=== PATIENT | female | born 1965 | race Caucasian/White ===

== ENCOUNTER 2016-07-20 18:49 | Inpatient (IN) | payer OTHER ==
[~2016-07-20] VITALS: Ht 157.5 cm; Wt 79.5 kg
[2016-07-20] MEDS ORDERED: morphine 4 MG/ML VIAL IV STA ×2 (19:59→21:55)
[2016-07-20] MEDS ORDERED: FAMOTIDINE 20 MG INJ IV STA (19:59)
[2016-07-20] MEDS ORDERED: SOD CHLORIDE 0.9% 1,000 ML IV STA (19:59)
[2016-07-20] MEDS ORDERED: ONDANSETRON 4 MG INJ IV STA ×2 (19:59→21:55)
[2016-07-20 20:42] LABS: ADD SCAN DIFF NO
[2016-07-20 20:45] LABS: BASOPHIL # 0.1 10^3/ul (0.0-0.1); BASOPHILS % 0.3 % (0.0-2.0); EOSINOPHILS % 0.1 % (0.0-7.0); HEMATOCRIT 44.5 % (37.0-47.0); LYMPHOCYTES # 1.3 10^3/ul (0.8-2.9); LYMPHOCYTES % 6.5 % (15.0-51.0); MEAN CORPUSCULAR HEMOGLOBIN 31.1 pg (29.0-33.0); MEAN CORPUSCULAR HGB CONC 33.7 g/dl (32.0-37.0); MEAN CORPUSCULAR VOLUME 92.3 fl (82.0-101.0); MEAN PLATELET VOLUME 11.4 fl (7.4-10.4); MONOCYTE # 0.6 10^3/ul (0.3-0.9); MONOCYTES % 2.8 % (0.0-11.0); NEUTROPHIL # 17.4 10^3/ul (1.6-7.5); NEUTROPHILS % 89.7 % (39.0-77.0); PLATELET COUNT 284 10^3/UL (140-415); RED BLOOD COUNT 4.82 10^6/ul (4.20-5.40); RED CELL DISTRIBUTION WIDTH 12.3 % (11.5-14.5); WHITE BLOOD COUNT 19.3 10^3/ul (4.8-10.8)
[2016-07-20 20:50] LABS: UR BILIRUBIN (Dip) NEGATIVE (NEGATIVE); UR BLOOD (Dip) NEGATIVE (NEGATIVE); UR CLARITY CLEAR (CLEAR); UR COLOR YELLOW (YELLOW); UR GLUCOSE (Dip) NEGATIVE (NEGATIVE); UR KETONES (Dip) 15 (NEGATIVE); UR LEUKOCYTE ESTERASE (Dip) NEGATIVE (NEGATIVE); UR NITRITE (Dip) NEGATIVE (NEGATIVE); UR UROBILINOGEN (Dip) 0.2 E.U./dL (0.1-1.0)
[2016-07-20 20:51] LABS: ADD UMIC NO; UR TOTAL PROTEIN (Dip) NEGATIVE (NEGATIVE)
[2016-07-20 21:11] LABS: ALBUMIN 5.4 g/dl (3.3-4.9); ALBUMIN/GLOBULIN RATIO 1.54; BILIRUBIN,INDIRECT 0.4 mg/dl (0-1.1); BILIRUBIN,TOTAL 0.4 mg/dl (0.2-1.3); CALCIUM 10.3 mg/dl (8.4-10.2); CREATININE 0.82 mg/dl (0.44-1.00); POTASSIUM 3.8 mmol/L (3.5-5.1); TOTAL PROTEIN 8.9 g/dl (6.1-8.1)
--- NOTE | 2016-07-20 21:12 | RADRPT ---
PROCEDURE: Right upper quadrant abdominal ultrasound. CLINICAL INDICATION: Abdominal pain TECHNIQUE: Sears scale and color doppler ultrasound images of the right upper quadrant. COMPARISON: None FINDINGS: Pancreas: Visualized portions appear of normal echogenicity, no focal lesions. Liver: Morphology: Normal in size and contour. Echogenicity: Increased echogenicity of the liver parenchyma suggestive of hepatic steatosis. Focal lesions: None. Main portal vein: Patent with hepatopetal flow. Biliary System: Normal appearing gallbladder wall. No gallstones seen. No intrahepatic biliary dilatation. Common bile duct measures 4.1 mm in maximal dimension. Kidneys: Right 9.8 cm in length. Right renal cortical thickness is preserved. Normal echogenicity. No hydronephrosis. No renal calculi. No focal lesions. No free fluid identified. IMPRESSION: Normal gallbladder without gallstones. Increased echogenicity of the liver parenchyma suggestive of hepatic steatosis. RPTAT: AADD .Abhi Bee MD, MD Date Time Electronically viewed and signed by .Abhi Bee MD, on 07/20/2016 21:12 .B/
--- NOTE | 2016-07-20 21:39 | RADRPT ---
PROCEDURE: CT abdomen and pelvis without contrast. CLINICAL INDICATION: Abdominal Pain TECHNIQUE: CT scan of the abdomen and pelvis without contrast was performed and is reconstructed a t 2.5 mm contiguous axial intervals from the dome of the diaphragm to the inferior pubic rami.. The patient was scanned without intravenous contrast. Sagittal and coronal reformatted images were obt ained from the axial source images. The calculated radiation dose measures 904 mGy centimeters. The CTDI measures over 17 mGy. COMPARISON: A FINDINGS: The lung bases are clear of any infiltrate or nodule. No effusion is seen. The liver is of normal size, contour and attenuation with no mass or ductal dilatation. No gallston es are visualized. No splenic, adrenal or pancreatic abnormalities present. Kidneys are of normal size and contour. No hydronephrosis, calculus or masses seen. Ureters are o f normal course and caliber with no stone. No bladder mass or stone is present. Uterus and ovaries are normal. There is no aneurysm. No adenopathy is present. No bowel mass is seen. Noted is a moderate length loop of distended small bowel in the left abdom en. Transition is not confidently visualized.. No associated masses seen. The remainder of the sm all bowel and colon are of normal course and caliber. Findings may represent evidence of chronic pa rtial or early acute small bowel obstruction.. The appendix is normal. No phlegmon, ascites or pne umoperitoneum is visualized. The osseous structures are intact. IMPRESSION: Single dilated loops small bowel left abdomen. Transition not clearly seen. Question chronic parti al or early acute small bowel obstruction versus focal ileus. Consider small-bowel follow-through f or more definitive diagnosis. .Nick Pat MD, MD Date Time Electronically viewed and signed by .Nick Pat MD, on 07/20/2016 21:39 .A/
--- NOTE | 2016-07-20 21:39 | ERD ---
ER Documentation Chief Complaint Date/Time DATE: 07/20/16 TIME: 21:37 Chief Complaint AP and Vomiting. AIDS positive HPI This is a 51-year-old female with past history of AIDS that presents to the ER with mid epigastric pain that started earlier today. Patient describes pain as a burning sensation and she states that pain is severe. Pain is nonradiating. Patient states that she has had nausea and vomiting. Vomiting is nonbilious nonbloody. She denies any diarrhea. Patient denies any chest pain or shortness of breath. Patient got diagnosed with AIDS 10-12 years ago. She denies any cough or cold symptoms. She does not have any rashes. ROS 12 point review of systems was done, all negative except per HPI. Allergies Allergies: Coded Allergies: No Known Allergy (Unverified , 07/20/16) Physical Exam Vitals Vital Signs Date Time Temp Pulse Resp B/P Pulse Ox O2 Delivery O2 Flow Rate FiO2 07/20/16 23:01 98.6 68 18 122/57 97 Room Air 07/20/16 18:58 98.1 75 20 136/90 98 Physical Exam GENERAL: The patient is well developed and appropriate for usual state of health , in no apparent distress. HEENT: Atraumatic. CHEST: Clear to auscultation bilaterally. There are no rales, wheezes or rhonchi. HEART: Regular rate and rhythm. No murmurs, clicks, rubs or gallops. ABDOMEN: Soft, nontender and nondistended. Good bowel sounds. No rebound or guarding. No gross peritonitis. No gross organomegaly or masses. No Garg sign or McBurney point tenderness. BACK: No midline or flank tenderness. NEURO: Alert and oriented. SKIN: There is no apparent rash or petechia. The skin is warm and dry. Result Diagram: 07/20/16200907/20/162009 Results 24 hrs Laboratory Tests Test 07/20/16 20:10 07/20/16 20:15 White Blood Count 19.310^3/ul Red Blood Count 4.8210^6/ul Hemoglobin 15.0g/dl Hematocrit 44.5% Mean Corpuscular Volume 92.3fl Mean Corpuscular Hemoglobin 31.1pg Mean Corpuscular Hemoglobin Concent 33.7g/dl Red Cell Distribution Width 12.3% Platelet Count 05770^3/UL Mean Platelet Volume 11.4fl Neutrophils % 89.7% Lymphocytes % 6.5% Monocytes % 2.8% Eosinophils % 0.1% Basophils % 0.3% Nucleated Red Blood Cells % 0.0/100WBC Neutrophils # 17.410^3/ul Lymphocytes # 1.310^3/ul Monocytes # 0.610^3/ul Eosinophils # 0.010^3/ul Basophils # 0.110^3/ul Nucleated Red Blood Cells # 0.010^3/ul Sodium Level 144mmol/L Potassium Level 3.8mmol/L Chloride Level 101mmol/L Carbon Dioxide Level 30mmol/L Anion Gap 17 Blood Urea Nitrogen 16mg/dl Creatinine 0.82mg/dl Glucose Level 141mg/dl Calcium Level 10.3mg/dl Total Bilirubin 0.4mg/dl Direct Bilirubin 0.00mg/dl Indirect Bilirubin 0.4mg/dl Aspartate Amino Transf (AST/SGOT) 32IU/L Alanine Aminotransferase (ALT/SGPT) 47IU/L Alkaline Phosphatase 134IU/L Total Protein 8.9g/dl Albumin 5.4g/dl Globulin 3.50g/dl Albumin/Globulin Ratio 1.54 Lipase 48U/L Urine Color YELLOW Urine Clarity CLEAR Urine pH 6.0 Urine Specific [place] 1.025 Urine Ketones 15 Urine Nitrite NEGATIVE Urine Bilirubin NEGATIVE Urine Urobilinogen 0.2 E.U./dL Urine Leukocyte Esterase NEGATIVE Urine Hemoglobin NEGATIVE Urine Glucose NEGATIVE% Urine Total Protein NEGATIVE Current Medications Medications (Trade) Dose Ordered Sig/Valerie Route PRN Reason Start Time Stop Time Status Last Admin Dose Admin Sodium Chloride (NS) 1,000 ml @ 1,000 mls/hr Q1H STAT IV 07/20/16 19:59 07/20/16 20:58 DC 07/20/16 20:19 Morphine Sulfate (morphine) 4 mg ONCE STAT IV 07/20/16 19:59 07/20/16 20:02 DC 07/20/16 20:19 Ondansetron HCl (Zofran Inj) 4 mg ONCE STAT IV 07/20/16 19:59 07/20/16 20:02 DC 07/20/16 20:19 Famotidine (Pepcid Iv) 20 mg ONCE STAT IV 07/20/16 19:59 07/20/16 20:03 DC 07/20/16 20:19 Morphine Sulfate (morphine) 3 mg ONCE STAT IV 07/20/16 21:55 07/20/16 21:57 DC 07/20/16 22:08 Ondansetron HCl 4 mg 4 mg ONCE STAT IV 07/20/16 21:55 07/20/16 21:57 DC 07/20/16 22:08 Piperacillin Sod/ Tazobactam Sod (Zosyn 3.375gm/ 100 ml (Pmx)) 100 ml @ 200 mls/hr ONCE ONCE IVPB 07/20/16 22:00 07/20/16 22:29 DC 07/20/16 22:08 Procedures/MDM Differential Diagnosis: GERD, gastritis, peptic ulcer disease, pancreatitis, cholecystitis, choledocholithiasis, biliary colic, cholangitis, [id number] , ACS/ME, Pnuemonia. This is a 51 y/o female that presents to the ER for abdominal pain. On CT patient has obstruction vs. illeus. I spoke to my supervising physician Dr. Shepherd who suggested admission for this patient. Patient will be admitted to Med/Surg. I consulted hospitalist toll transmission worker who accepts case. Departure Diagnosis: Primary Impression: Abdominal pain Condition: Stable RAMBO ROCHA Jul 20, 2016 21:38
[2016-07-20] MEDS ORDERED: PIPER-TAZO 3.375 GM IV (PMX) 100 ML IVPB ONE (22:00)
[2016-07-20 23:01] VITALS: TEMP 98.6
[2016-07-20] MEDS ORDERED: morphine 2 MG INJ IV PRN (23:30)
[2016-07-20] MEDS ORDERED: ONDANSETRON 4 MG INJ IV PRN (23:30)
[2016-07-20] MEDS ORDERED: NACL 0.9% 3 ML SYG IV SCH (23:30)
[2016-07-21] MEDS ORDERED: VANCOMYCIN IV PER PHARMACY XX SCH
[2016-07-21] MEDS: SOD CHLORIDE 0.9% 1,000 ML IV SCH ×3 (00:29→17:38)
[2016-07-21] MEDS ORDERED: ABAC1TAB12 PO (00:54)
[2016-07-21] MEDS ORDERED: PRAV10TA43 PO (00:54)
[2016-07-21] MEDS ORDERED: DOCU-159 PO (00:54)
[2016-07-21] MEDS ORDERED: IBUP800T25 PO (00:54)
[2016-07-21] MEDS ORDERED: GABA300C16 PO (00:54)
[2016-07-21 01:44] VITALS: BP 133/77; PULSE 67; RESP 18
[2016-07-21 02:03] VITALS: Ht 157.5 cm; Wt 79.5 kg
[2016-07-21] MEDS: morphine 2 MG INJ IV PRN ×3 (04:38→11:27)
[2016-07-21 05:13] LABS: ADD SCAN DIFF NO
[2016-07-21 05:33] LABS: BASOPHILS % 0.3 % (0.0-2.0); EOSINOPHILS % 0.2 % (0.0-7.0); HEMATOCRIT 42.3 % (37.0-47.0); LYMPHOCYTES # 1.9 10^3/ul (0.8-2.9); MEAN CORPUSCULAR HEMOGLOBIN 31.3 pg (29.0-33.0); MEAN CORPUSCULAR HGB CONC 33.1 g/dl (32.0-37.0); MEAN CORPUSCULAR VOLUME 94.4 fl (82.0-101.0); MEAN PLATELET VOLUME 11.9 fl (7.4-10.4); MONOCYTE # 1.1 10^3/ul (0.3-0.9); MONOCYTES % 8.8 % (0.0-11.0); NEUTROPHIL # 8.9 10^3/ul (1.6-7.5); NEUTROPHILS % 74.3 % (39.0-77.0); PLATELET COUNT 269 10^3/UL (140-415); RED BLOOD COUNT 4.48 10^6/ul (4.20-5.40); RED CELL DISTRIBUTION WIDTH 12.5 % (11.5-14.5)
[2016-07-21 05:47] LABS: CALCIUM 9.9 mg/dl (8.4-10.2); CREATININE 0.71 mg/dl (0.44-1.00); MAGNESIUM 2.2 mg/dl (1.7-2.5); POTASSIUM 4.4 mmol/L (3.5-5.1)
[2016-07-21 05:48] LABS: ALBUMIN 4.7 g/dl (3.3-4.9); ALBUMIN/GLOBULIN RATIO 1.46; BILIRUBIN,INDIRECT 0.5 mg/dl (0-1.1); BILIRUBIN,TOTAL 0.5 mg/dl (0.2-1.3); TOTAL PROTEIN 7.9 g/dl (6.1-8.1)
[2016-07-21] MEDS: PANTOPRAZOLE 40 MG INJ IV SCH (05:53)
--- NOTE | 2016-07-21 06:20 | HP ---
Date/Time of Note Date/Time of Note DATE: 07/21/16 TIME: 06:04 Assessment/Plan VTE Prophylaxis VTE Prophylaxis Intervention: SCD's Lines/Catheters IV C[facility] Type (from [facility] Peripheral IV Assessment/Plan Chief Complaint/Hosp Course This is a 51-year-old female being admitted to the [facility] floor for: #1 abdominal pain: Small bowel obstruction versus ileus as indicated by the CAT scan. At the current time we will treat the patient with IV fluid hydration keep the patient n.p.o. for bowel rest, however we will give her her HIV medications. Will order a small bowel follow-through to further help with assessing the etiology. Patient also started on IV antibiotics secondary to patient's elevated white blood cell count and her history of HIV AIDS. #2 leukocytosis: At the current time patient did not have any fevers however patient is under treatment for HIV and AIDS. There is a possibility this could could be reactive. However we will await blood cultures and urine cultures. She was started on Zosyn in the emergency department we will continue her on antibiotics. Will consult infectious disease. #3 HIV/AIDS: We will continue patient on her HIV medications. Will also obtain a CD4 count. Consult infectious disease. #4 DVT and GI prophylaxis: SCDs, Protonix Further treatment strategy will be implemented as per the clinical course Problems: HPI/ROS Admit Date/Time Admit Date/Time Jul 20, 2016 at 22:41 Hx of Present Illness Chief complaint: Abdominal pain 1 day This is a 51-year-old female with past history of AIDS that presents to the ER with mid epigastric pain that started earlier today. Patient describes pain as a burning sensation and she states that pain is severe. Pain is nonradiating. Patient states that she has had nausea and vomiting. Vomiting is nonbilious nonbloody. She denies any diarrhea. Patient denies any chest pain or shortness of breath. Patient got diagnosed with AIDS 10-12 years ago. She denies any cough or cold symptoms. She does not have any rashes. Allergies: NKDA Medications: See JAILENE RENEE Const: As per HPI Eyes : No pain discharge or redness or change in visual acuity ENT: No pain, sore throat, congestion, congestion, dysphagia or discharge Respiratory: No shortness of breath, cough, sputum, wheezing, or pleuritic pain Cardiovascular: No chest pain, palpitation, PND, or edema GI : As per HPI Genitourinary: No dysuria, hematuria, flank pain , discharge or CVA tenderness Musculoskeletal: No joint pain, back pain, neck pain, restricted range of motion in neck or joints Skin: No rash, bruising or hives Neuro: No headache, dizziness, syncope, seizure, focal weakness Endocrine: No polyuria, polydipsia, temperature intolerance Psych: No hallucination, depression, anxiety or suicidal ideation PMH/Family/Social Past Medical History HIV/AIDS Past Surgical History Past Surgical Hx: no surgical history Family History Significant Family History: heart disease (Mom and dad) Social History Alcohol Use: none Smoking Status: Former smoker Drug Use: none Exam/Review of Systems Vital Signs Vitals Vital Signs Date Time Temp Pulse Resp B/P Pulse Ox O2 Delivery O2 Flow Rate FiO2 07/21/16 01:44 98.5 67 18 133/77 97 Room Air Exam Exam General: This is a 51-year-old female laying in bed in mild distress HEENT: Atraumatic, normocephalic. The pupils are equal, round and reactive. Extraocular motor are intact Neck: Supple with full range of motion. No rigidity or meningismus Chest: Nontender Lungs: Clear to auscultation bilaterally no crackles rales or wheezing Heart: Normal S1-S2, Regular rhythm and rate. No overt murmur appreciated Abdomen: Soft, tender to palpation around the epigastric region, hypoactive bowel sounds Extremities: Normal to inspection, no edema no cyanosis Neurologic: Normal mental status, speech normal, cranial nerves II through XII are intact, motor and sensory are intact, no focal weakness Additional Comments PROCEDURE: CT abdomen and pelvis without contrast. CLINICAL INDICATION: Abdominal Pain TECHNIQUE: CT scan of the abdomen and pelvis without contrast was performed and is reconstructed at 2.5 mm contiguous axial intervals from the dome of the diaphragm to the inferior pubic rami.. The patient was scanned without intravenous contrast. Sagittal and coronal reformatted images were obtained from the axial source images. The calculated radiation dose measures 904 mGy centimeters. The CTDI measures over 17 mGy. COMPARISON: A FINDINGS: The lung bases are clear of any infiltrate or nodule. No effusion is seen. The liver is of normal size, contour and attenuation with no mass or ductal dilatation. No gallstones are visualized. No splenic, adrenal or pancreatic abnormalities present. Kidneys are of normal size and contour. No hydronephrosis, calculus or masses seen. Ureters are of normal course and caliber with no stone. No bladder mass or stone is present. Uterus and ovaries are normal. There is no aneurysm. No adenopathy is present. No bowel mass is seen. Noted is a moderate length loop of distended small bowel in the left abdomen. Transition is not confidently visualized.. No associated masses seen. The remainder of the small bowel and colon are of normal course and caliber. Findings may represent evidence of chronic partial or early acute small bowel obstruction.. The appendix is normal. No phlegmon, ascites or pneumoperitoneum is visualized. The osseous structures are intact. IMPRESSION: Single dilated loops small bowel left abdomen. Transition not clearly seen. Question chronic partial or early acute small bowel obstruction versus focal ileus. Consider small-bowel follow-through for more definitive diagnosis. .Nick Pat MD, MD Date Time Electronically viewed and signed by .Nick Pat MD, MD on 07/20/2016 21: 39 .A/ CC: RAMBO ROCHA PROCEDURE: Right upper quadrant abdominal ultrasound. CLINICAL INDICATION: Abdominal pain TECHNIQUE: Sears scale and color doppler ultrasound images of the right upper quadrant. COMPARISON: None FINDINGS: Pancreas: Visualized portions appear of normal echogenicity, no focal lesions. Liver: Morphology: Normal in size and contour. Echogenicity: Increased echogenicity of the liver parenchyma suggestive of hepatic steatosis. Focal lesions: None. Main portal vein: Patent with hepatopetal flow. Biliary System: Normal appearing gallbladder wall. No gallstones seen. No intrahepatic biliary dilatation. Common bile duct measures 4.1 mm in maximal dimension. Kidneys: Right 9.8 cm in length. Right renal cortical thickness is preserved. Normal echogenicity. No hydronephrosis. No renal calculi. No focal lesions. No free fluid identified. IMPRESSION: Normal gallbladder without gallstones. Increased echogenicity of the liver parenchyma suggestive of hepatic steatosis. RPTAT: AADD .Abhi Bee MD, Date Time Electronically viewed and signed by .Abhi Bee MD, on 07/20/2016 21:12 .B/ CC: RAMBO ROCHA Labs Result Diagram: 07/20/16200907/21/16 0425 Medications Medications Current Medications Sodium Chloride (NS) 1,000 ml @ 80 mls/hr [id number] IV Last administered on 07/21 02:25; Admin Dose 80 MLS/HR; Start 07/20/16 at 23:29 Ondansetron HCl (Zofran Inj) 4 mg Q6H PRN IV NAUSEA AND/OR VOMITING Last administered on 07/21/16 00:28; Admin Dose 4 MG; Start 07/20/16 at 23:30 Pantoprazole (Protonix Iv) 40 mg DAILY@06 IV Last administered on 07/21/16 05: 53; Admin Dose 40 MG; Start 07/21/16 at 06:00 Miscellaneous Information Patients own medicat... BID@ XX ; Start 07/21/16 at 10:00 Morphine Sulfate (morphine) 2 mg Q2H PRN IV SEVERE PAIN LEVEL 7-10 Last administered on 07/21/16 04:38; Admin Dose 2 MG; Start 07/21/16 at 04:30 SUE LAI Jul 21, 2016 06:15
[2016-07-21 07:00] VITALS: BP 138/67; RESP 19
--- NOTE | 2016-07-21 08:21 | PN ---
Date/Time of Note Date/Time of Note DATE: 07/21/16 TIME: 08:18 Assessment/Plan VTE Prophylaxis VTE Prophylaxis Intervention: SCD's Lines/Catheters IV C[facility] Type [facility] Peripheral IV Assessment/Plan Chief Complaint/Hosp Course A/P: 51-year-old female being admitted to the [facility] floor for: #1 abdominal pain: Small bowel obstruction versus ileus as indicated by the CAT scan. - continue IV fluid hydration, n.p.o. for bowel rest, however we will give her her HIV medications. - f/u small bowel follow-through to further help with assessing the etiology. - for now, continue IV antibiotics secondary to patient's elevated white blood cell count and her history of HIV AIDS. - surgery consult (Giuseppe) #2 leukocytosis: At the current time patient did not have any fevers however patient is under treatment for HIV and AIDS. There is a possibility this could could be reactive. WBC trending down now. - f/u blood cultures and urine cultures. - for now continue Zosyn in the emergency department we will continue her on antibiotics. - Will consult infectious disease. #3 HIV/AIDS: We will continue patient on her HIV medications. Will also obtain a CD4 count. Consult infectious disease. #4 DVT and GI prophylaxis: SCDs, Protonix Further treatment strategy will be implemented as per the clinical course Problems: Subjective 24 Hr Interval Summary Free Text/Dictation Pt still with abd pain, has not passed gas since yesterday. Exam/Review of Systems Vital Signs Vitals Vital Signs Date Time Temp Pulse Resp B/P Pulse Ox O2 Delivery O2 Flow Rate FiO2 07/21/16 07:00 98.4 69 19 138/67 95 07/21/16 01:44 Room Air Intake and Output 07/20/16 07/20/16 07/21/16 15:00 23:00 07:00 Intake Total 320 ml Balance 320 ml Exam General:lying in bed in mild distress HEENT: Atraumatic, normocephalic. The pupils are equal, round and reactive. Extraocular motor are intact Neck: Supple with full range of motion. No rigidity or meningismus Chest: Nontender Lungs: Clear to auscultation bilaterally no crackles rales or wheezing Heart: Normal S1-S2, Regular rhythm and rate. No overt murmur appreciated Abdomen: Soft, some tender to palpation around the epigastric region, hypoactive bowel sounds Extremities: Normal to inspection, no edema no cyanosis Neurologic: Normal mental status, speech normal, cranial nerves II through XII are intact, motor and sensory are intact, no focal weakness Results Result Diagram: 07/21/16 0425 07/21/16 0425 Results 24 hrs Laboratory Tests Test 07/20/16 20:10 07/20/16 20:15 07/21/16 04:25 White Blood Count 19.3 H 12.0 #H Red Blood Count 4.82 4.48 Hemoglobin 15.0 14.0 Hematocrit 44.5 42.3 Mean Corpuscular Volume 92.3 94.4 Mean Corpuscular Hemoglobin 31.1 31.3 Mean Corpuscular Hemoglobin Concent 33.7 33.1 Red Cell Distribution Width 12.3 12.5 Platelet Count 284 269 Mean Platelet Volume 11.4 H 11.9 H Neutrophils % 89.7 H 74.3 Lymphocytes % 6.5 L 16.0 Monocytes % 2.8 8.8 Eosinophils % 0.1 0.2 Basophils % 0.3 0.3 Nucleated Red Blood Cells % 0.0 0.0 Neutrophils # 17.4 H 8.9 H Lymphocytes # 1.3 1.9 Monocytes # 0.6 1.1 H Eosinophils # 0.0 0.0 Basophils # 0.1 0.0 Nucleated Red Blood Cells # 0.0 0.0 Sodium Level 144 146 H Potassium Level 3.8 4.4 Chloride Level 101 109 Carbon Dioxide Level 30 26 Anion Gap 17 H 15 Blood Urea Nitrogen 16 14 Creatinine 0.82 0.71 Glucose Level 141 121 Calcium Level 10.3 H 9.9 Total Bilirubin 0.4 0.5 Direct Bilirubin 0.00 0.00 Indirect Bilirubin 0.4 0.5 Aspartate Amino Transf (AST/SGOT) 32 27 Alanine Aminotransferase (ALT/SGPT) 47 41 Alkaline Phosphatase 134 H 112 Total Protein 8.9 H 7.9 # Albumin 5.4 H 4.7 Globulin 3.50 H 3.20 Albumin/Globulin Ratio 1.54 1.46 Lipase 48 Urine Color YELLOW Urine Clarity CLEAR Urine pH 6.0 Urine Specific [place] 1.025 Urine Ketones 15 Urine Nitrite NEGATIVE Urine Bilirubin NEGATIVE Urine Urobilinogen 0.2 E.U./dL Urine Leukocyte Esterase NEGATIVE Urine Hemoglobin NEGATIVE Urine Glucose NEGATIVE Urine Total Protein NEGATIVE Magnesium Level 2.2 Medications Medications Current Medications Sodium Chloride (NS) 1,000 ml @ 80 mls/hr [id number] IV Last administered on 07/21 02:25; Admin Dose 80 MLS/HR; Start 07/20/16 at 23:29 Ondansetron HCl (Zofran Inj) 4 mg Q6H PRN IV NAUSEA AND/OR VOMITING Last administered on 07/21/16 00:28; Admin Dose 4 MG; Start 07/20/16 at 23:30 Pantoprazole (Protonix Iv) 40 mg DAILY@06 IV Last administered on 07/21/16 05: 53; Admin Dose 40 MG; Start 07/21/16 at 06:00 Miscellaneous Information Patients own medicat... BID@ XX ; Start 07/21/16 at 10:00 Morphine Sulfate 2 mg 2 mg Q2H PRN IV SEVERE PAIN LEVEL 7-10 Last administered on 07/21/16 07:31; Admin Dose 2 MG; Start 07/21/16 at 04:30 Piperacillin Sod/ Tazobactam Sod (Zosyn 3.375gm/ 100 ml (Pmx)) 100 ml @ 200 mls /hr Q6 IVPB ; Start 07/21/16 at 12:00 Miscellaneous Information 1 each DAILY PO ; Start 07/21/16 at 09:00; Status UNV Miscellaneous Information (*Order Clarification Bulletin) MEDICATION REQUIRES CLARIFICATI... Q8H XX ; Start 07/21/16 at 08:30 JOSE MARTIN BRAVO Jul 21, 2016 08:21
[2016-07-21] MEDS ORDERED: [UNRECOGNIZED DRUG - REMARK] XX SCH (08:30)
[2016-07-21] MEDS ORDERED: NON-FORMULARY/PATIENT OWN MED (Abacavir/Dolutegravir/Lamivudi (Triumeq Tablet) 1 EACH) PO SCH (09:00)
[2016-07-21] MEDS: DIATR MEGLU/DIATRIZOATE SODIUM 120 ML BTL ONE ×2 (09:51→12:32)
[2016-07-21 10:22] LABS: CHOL/HDL RATIO 4.6 RATIO
--- NOTE | 2016-07-21 10:25 | CONS ---
DATE OF ADMISSION: 07/20/2016 DATE OF CONSULTATION: 07/21/2016 TYPE OF CONSULTATION: Surgical. REASON FOR CONSULTATION: Possible bowel obstruction. HISTORY OF PRESENT ILLNESS: The patient is an otherwise reasonably healthy 51-year-old female who w as well until yesterday, when she started to develop abdominal pain which is in the mid abdomen. Th is was not associated with nausea or vomiting. In the emergency room she was noted to have slight e pigastric tenderness. An abdominal ultrasound was unremarkable for gallstones. In the emergency ro om she was noted to have a soft and nontender abdomen. An abdominal ultrasound showed no evidence o f gallstones. A CT suggested a partial small-bowel obstruction versus ileus. The patient is symptom atically improved. PAST MEDICAL HISTORY: No previous abdominal surgeries or comorbidities. The patient states that she was diagnosed with HIV 10 to 12 years ago. REVIEW OF SYSTEMS: HEAD, EARS, EYES, NOSE AND THROAT: Unremarkable. PULMONARY: No history of pneumonia, asthma or shortness of breath. CARDIAC: No history of chest pain, OR or arrhythmia. ABDOMEN: As in the HPI. EXTREMITIES: Unremarkable. OUTPATIENT MEDICATIONS: Outlined in the chart. ALLERGIES: NONE. PHYSICAL EXAMINATION: GENERAL: The patient is an overweight 51-year-old female, who is awake and alert, in no acute distr ess. HEAD, EARS, EYES, NOSE, THROAT: Within normal limits. LUNGS: Clear. HEART: Regular rhythm. ABDOMEN: Obese, but soft and nontender. EXTREMITIES: Unremarkable. LABORATORY DATA: The patient's white count on admission was 19,300. It has come down to 12,000, wit h resolution of the left shift with 74 polys. BUN, glucose and electrolytes are unremarkable. LFTs are normal. IMAGING: As noted above. IMPRESSION: Doubt small-bowel obstruction. A small bowel follow-through has been ordered and has b een initiated. Further recommendations for this patient will depend on her further workup and clini joe course. I will follow with you. Dictated By: ANAI HASTINGS/LEON Conf#: [id number] DID#: [id number]
[2016-07-21] MEDS: PIPER-TAZO 3.375 GM IV (PMX) 100 ML IVPB SCH ×2 (11:30→17:38)
[2016-07-21] MEDS: ABACAVIR/LAMIVUDINE TAB PO SCH (11:30)
[2016-07-21] MEDS: DOLUTEGRAVIR SODIUM 50 MG TABLET PO SCH (12:33)
--- NOTE | 2016-07-21 13:32 | CONS ---
DATE OF ADMISSION: 07/20/2016 DATE OF CONSULTATION: 07/21/2016 TYPE OF CONSULTATION: Infectious disease. REASON FOR CONSULTATION: Antibiotic management. HISTORY OF PRESENT ILLNESS: Roxi Benítez is a 51-year-old female with a history of HIV/AIDS, who pre sents to the emergency room with midepigastric pain that started earlier in the day on the 15th. Th e pain is nonradiating. She has had nausea and vomiting. She denies any diarrhea. She has a histo ry of AIDS, diagnosed 10 to 12 years ago. On admission, her white count was 19.3, H and H of 15 and 44.5, platelet count of 284,000. On the her white count was 12,000, BUN and creatinine 16/0.8 2. Urine negative for nitrite and leukocyte esterase. CT scan of the abdomen and pelvis showed a s camelia dilated loop, a small bowel left abdomen transition point not clearly seen, question chronic p artial or early acute small-bowel obstruction versus focal ileus. Consider small bowel follow-throu for more definitive diagnosis. A gallbladder ultrasound showed increased echogenicity of the janey er parenchyma suggestive of hepatic steatosis, normal gallbladder with gallstones. The patient was seen in consultation by Dr. Chin of general surgery. He doubts small-bowel obstruction. Small marquise wel follow-through has been ordered. Further recommendations will depend on her further workup. PAST MEDICAL HISTORY: Operations as outlined. FAMILY HISTORY: Positive for heart disease. SOCIAL HISTORY: She is a former smoker. ALLERGIES: NONE TO PENICILLIN, SULFA OR FOODS. MEDICATIONS: Per chart. REVIEW OF SYSTEMS: As per HPI. PHYSICAL EXAMINATION: GENERAL: The patient is a well-developed, well-nourished female, who is alert, responsive, in no ac magdaleno distress. She is in mild distress. VITAL SIGNS: Stable. She is afebrile. SKIN: Without generalized rash. HEENT: Within normal limits. NECK: Supple. LYMPH NODES: None palpable. CHEST: Decreased breath sounds at the bases. HEART: Without murmur or gallop. ABDOMEN: Soft. She has some tenderness to palpation around the mid epigastrium. Hypoactive bowel sounds. EXTREMITIES: Without cyanosis, clubbing, or edema. RECTAL AND GENITAL EXAM: Deferred. NEUROLOGICAL EVALUATION: No focal neurological abnormality. CT scan of the abdomen and pelvis without contrast was performed, and as noted, she has a single dil ated small bowel loop, left abdomen. She currently is on Zosyn. Her medications include Tivicay or dolutegravir, and Epzicom, which is abacavir and lamivudine. She did receive some vancomycin and s ome Zosyn. She is on Zosyn presently. Will continue her on the current therapy. I want to thank darlene ponce hospitalist for asking me to see this unfortunate lady in consultation. Dictated By: DANIELA TATUM MD, JD/LEON Conf#: [id number] DID#: [id number]
[2016-07-21 14:00] VITALS: BP 128/76; PULSE 72; RESP 20
--- NOTE | 2016-07-21 15:40 | RADRPT ---
PROCEDURE: Small bowel follow-through. CLINICAL INDICATION: Abdomen pain. TECHNIQUE: Water-soluble contrast was administered orally and several spot and overhead radiograph s of the abdomen were obtained. COMPARISON: None. FINDINGS: The preliminary radiograph is normal. There is no small bowel displacement or mass. The small bowel folds are normal. There is no evidence of obstruction. Transit time is normal with contrast in the colon at 8 hours. There may be delayed gastric emptying with a large amount of contrast remaining in the stomach and 8 hours. IMPRESSION: 1. Possible delayed gastric emptying. 2. Otherwise normal small bowel follow-through. RPTAT: QQ .Dat Lopez MD, MD Date Time Electronically viewed and signed by .Dat Lopez MD, on 07/21/2016 15:40 .R/
[2016-07-21 19:00] VITALS: BP 140/68; RESP 18
[2016-07-22] MEDS: PIPER-TAZO 3.375 GM IV (PMX) 100 ML IVPB SCH ×3 (00:07→12:06)
[2016-07-22 05:11] LABS: ADD SCAN DIFF NO
[2016-07-22 05:42] LABS: CALCIUM 8.9 mg/dl (8.4-10.2); CREATININE 0.68 mg/dl (0.44-1.00); POTASSIUM 3.4 mmol/L (3.5-5.1)
[2016-07-22] MEDS: PANTOPRAZOLE 40 MG INJ IV SCH (05:54)
[2016-07-22 05:55] LABS: BASOPHILS % 0.3 % (0.0-2.0); EOSINOPHILS # 0.1 10^3/ul (0.0-0.5); EOSINOPHILS % 1.3 % (0.0-7.0); HEMATOCRIT 37.6 % (37.0-47.0); HEMOGLOBIN 12.1 g/dl (12.0-16.0); LYMPHOCYTES # 2.8 10^3/ul (0.8-2.9); LYMPHOCYTES % 28.4 % (15.0-51.0); MEAN CORPUSCULAR HEMOGLOBIN 31.3 pg (29.0-33.0); MEAN CORPUSCULAR HGB CONC 32.2 g/dl (32.0-37.0); MEAN CORPUSCULAR VOLUME 97.4 fl (82.0-101.0); MEAN PLATELET VOLUME 11.9 fl (7.4-10.4); MONOCYTE # 0.8 10^3/ul (0.3-0.9); NEUTROPHIL # 6.1 10^3/ul (1.6-7.5); NEUTROPHILS % 61.7 % (39.0-77.0); PLATELET COUNT 206 10^3/UL (140-415); RED BLOOD COUNT 3.86 10^6/ul (4.20-5.40); RED CELL DISTRIBUTION WIDTH 13.1 % (11.5-14.5)
[2016-07-22 07:00] VITALS: BP 114/61; RESP 20
[2016-07-22] MEDS: DOLUTEGRAVIR SODIUM 50 MG TABLET PO SCH (08:59)
[2016-07-22] MEDS: SOD CHLORIDE 0.9% 1,000 ML IV SCH (08:59)
[2016-07-22] MEDS: ABACAVIR/LAMIVUDINE TAB PO SCH (08:59)
--- NOTE | 2016-07-22 09:09 | PN ---
DATE: 07/22/2016 Small bowel follow through shows no evidence of obstruction. The patient is markedly symptomaticall y improved and she is tolerating clear liquids. Her abdominal examination is benign. She has had s everal bowel movements. PLAN: The patient's diet can be advanced to general and be discharged with outpatient followup. Dictated By: ANAI HASTINGS/LEON Conf#: [id number] DID#: [id number]
[2016-07-22] MEDS ORDERED: POTASSIUM CHLORIDE (SR) 20 MEQ TAB PO STA (13:25)
--- NOTE | 2016-07-22 13:32 | PDOCDIS ---
Discharge Instructions DIAGNOSIS Discharge Diagnosis: UTI; small bowel obstruction; CONDITION Patient Condition: Good HOME CARE INSTRUCTIONS: Diet Instructions: Regular ACTIVITY: Activity Restrictions: No Restrictions FOLLOW UP/APPOINTMENTS Appointments Primary physician in 1 week. SCHOOL/WORK RELEASE May return to School/Work with: No Restrictions CHERYL URIBE MD Jul 22, 2016 13:32
--- NOTE | 2016-07-22 13:35 | DS ---
Date/Time of Note Date/Time of Note DATE: 07/22/16 TIME: 13:34 Discharge Summary Admission/Discharge Info Admit Date/Time Jul 20, 2016 at 22:41 Discharge Date/Time 07/22/2016 Final Diagnosis Partial small bowel obstruction; UTI; HIV disease; fatty liver Patient Condition: Good Consults General surgery; infectious disease Procedures Gallbladder ultrasound; small bowel follow-through; abdominal CT Hx of Present Illness Chief complaint: Abdominal pain 1 day This is a 51-year-old female with past history of AIDS that presents to the ER with mid epigastric pain that started earlier today. Patient describes pain as a burning sensation and she states that pain is severe. Pain is nonradiating. Patient states that she has had nausea and vomiting. Vomiting is nonbilious nonbloody. She denies any diarrhea. Patient denies any chest pain or shortness of breath. Patient got diagnosed with AIDS 10-12 years ago. She denies any cough or cold symptoms. She does not have any rashes. Allergies: NKDA Medications: See [facility] Hospital Course A/P: 51-year-old female being admitted to the [facility] floor for: #1 abdominal pain: Small bowel obstruction versus ileus as indicated by the CAT scan. - continue IV fluid hydration, n.p.o. for bowel rest, however we will give her her HIV medications. - f/u small bowel follow-through to further help with assessing the etiology. - for now, continue IV antibiotics secondary to patient's elevated white blood cell count and her history of HIV AIDS. - surgery consult (Giuseppe) #2 leukocytosis: At the current time patient did not have any fevers however patient is under treatment for HIV and AIDS. There is a possibility this could could be reactive. WBC trending down now. - f/u blood cultures and urine cultures. - for now continue Zosyn in the emergency department we will continue her on antibiotics. - Will consult infectious disease. #3 HIV/AIDS: We will continue patient on her HIV medications. Will also obtain a CD4 count. Consult infectious disease. #4 DVT and GI prophylaxis: SCDs, Protonix Further treatment strategy will be implemented as per the clinical course Under observation the patient fully resolved all of her symptoms without direct intervention. Please note she had a UTI and did receive IV antibiotics which cleared this entirely. She is now stable and cleared for discharge by general surgery as well as by myself. She has no known communicable diseases she is not a hazard to herself or others her rehabilitation potential is good. Home Meds Reported Medications Docusate Sodium* (Docusate Sodium*) 100 Mg Capsule, 100 MG PO BID, #60 CAP 07/21/16 Pravastatin Sodium* (Pravastatin Sodium*) 10 Mg Tablet, 10 MG PO HS, TAB 07/21/16 Gabapentin* (Gabapentin*) 300 Mg Capsule, 300 MG PO BID, #60 CAP 07/21/16 Ibuprofen* (Ibuprofen*) 800 Mg Tab, 800 MG PO TID, TAB 07/21/16 Abacavir/Dolutegravir/Lamivudi (Triumeq Tablet) 1 Each Tablet, 1 EACH PO DAILY, TAB 07/21/16 Follow-up Plan Primary care doctor in 1 week Primary Care Provider Wesly Toussaint Time spent on discharge: > 30 minutes Pending Labs Laboratory Tests Test 07/22/16 04:15 White Blood Count 10.010^3/ul (4.8-10.8) Red Blood Count 3.8610^6/ul (4.20-5.40) Hemoglobin 12.1g/dl (12.0-16.0) Hematocrit 37.6% (37.0-47.0) Mean Corpuscular Volume 97.4fl (82.0-101.0) Mean Corpuscular Hemoglobin 31.3pg (29.0-33.0) Mean Corpuscular Hemoglobin Concent 32.2g/dl (32.0-37.0) Red Cell Distribution Width 13.1% (11.5-14.5) Platelet Count 03576^3/UL (140-415) Mean Platelet Volume 11.9fl (7.4-10.4) Neutrophils % 61.7% (39.0-77.0) Lymphocytes % 28.4% (15.0-51.0) Monocytes % 8.0% (0.0-11.0) Eosinophils % 1.3% (0.0-7.0) Basophils % 0.3% (0.0-2.0) Nucleated Red Blood Cells % 0.0/100WBC (0.0-0.0) Neutrophils # 6.110^3/ul (1.6-7.5) Lymphocytes # 2.810^3/ul (0.8-2.9) Monocytes # 0.810^3/ul (0.3-0.9) Eosinophils # 0.110^3/ul (0.0-0.5) Basophils # 0.010^3/ul (0.0-0.1) Nucleated Red Blood Cells # 0.010^3/ul (0.0-0.0) Sodium Level 144mmol/L (135-144) Potassium Level 3.4mmol/L (3.5-5.1) Chloride Level 112mmol/L (97-110) Carbon Dioxide Level 23mmol/L (21-31) Anion Gap 12 (8-16) Blood Urea Nitrogen 13mg/dl (7-20) Creatinine 0.68mg/dl (0.44-1.00) Glucose Level 100mg/dl (70-220) Calcium Level 8.9mg/dl (8.4-10.2) CHERYL URIBE MD Jul 22, 2016 13:35
[2016-07-24 13:44] LABS: LYMPHOCYTE - % CD4 (HELPER) 30 % (30-61); LYMPHOCYTE - %CD8 (SUPPRESSOR) 34 % (12-42); LYMPHOCYTE - ABSOLUTE CD4 744 cells/uL (490-1740); LYMPHOCYTE - ABSOLUTE CD8 847 cells/uL (180-1170); LYMPHOCYTE - CD4/CD8 RATIO 0.88 (0.86-5.00)
== END 2016-07-22 14:44 | disposition home or self-care (01) | DRG 388 ==
LOC: FTE 18:49 → MS1 22:41
PROVIDERS: ADMIT Family Medicine; ATTEND Family Medicine
DX: K56.60 Unspecified intestinal obstruction (principal); B20 Human immunodeficiency virus [HIV] disease; K76.0 Fatty (change of) liver, not elsewhere classified; N39.0 Urinary tract infection, site not specified; D72.829 Elevated white blood cell count, unspecified; Z87.891 Personal history of nicotine dependence
CPT/HCPCS: 74176; 74250; 76705; 80048; 80053; 80061; 81003; 83036; 83690; 83735; 85025; 86360; 87040; 87086; 87536; C9113; J2270; J2405; J2543; J7030

== ENCOUNTER → 2017-01-23 | Outpatient (CLI) | payer OTHER ==
[~2017-01-23] MED LIST: ABAC1TAB12 PO; DOCU-159 PO; GABA300C16 PO; IBUP800T25 PO; PRAV10TA43 PO
--- NOTE | 2017-01-23 20:02 | HKNOTE ---
DATE OF SERVICE: 01/23/2017 CHIEF COMPLAINT: Right knee pain. HISTORY OF PRESENT ILLNESS: This is a 51-year-old female with complaint of right knee pain. She de nies any locking, catching or instability. She does not use any assist devices. She does not take any pain medications. She states that the pain is intermittent. There is no radiation. She denies any groin or back pain. She has no other complaints. Gait: Nonantalgic gait reciprocal gait pattern. Right knee exam: Neutral alignment. Tender over the medial joint line. Nontender over the lateral joint line, 0 to 120 degrees range of motion, stable to varus valgus stress, negative Shanita, nega tive anterior drawer, negative posterior drawer, negative Ulices's. Motor strength: 5/5 hamstrings, quadriceps, tibialis anterior, gastric soleus. X-rays, right knee: 3 views of the right knee demonstrate minimal degenerative changes. There is s ubchondral sclerosis, no marginal osteophytes. X-rays, left knee: 3 views of the right knee demonstrate minimal degenerative changes. There is olivares bchondral sclerosis, no marginal osteophytes. IMPRESSION: A 51-year-old female with mild right knee degenerative joint disease. PLAN: She was instructed on weight loss, low impact aerobic exercises, and [id number] pain me dications. We will request authorization for outpatient physical therapy. She will follow up as ne sherry in the future. Dictated By: DIANA JALLOH/LEON Conf#: [id number] DID#: [id number]
--- NOTE | 2017-01-24 14:03 | RADRPT ---
PROCEDURE: Bilateral knee x-ray CLINICAL INDICATION: Knee pain TECHNIQUE: Weight bearing AP, lateral, sunrise, tunnel views of the bilateral knees were obtained. COMPARISON: None FINDINGS: Right knee: There is normal mineralization. No acute fracture or dislocation is seen. There is a small to moderate enthesophyte in the superior patella. There is a small right knee joint effusion. There are no significant joint space narrowing. There is no significant soft tissue swelling. Left knee: There is normal mineralization. No acute fracture or dislocation is seen. There is a small enthesophyte in the superior patella. There is a small left knee joint effusion. There are no significant joint space narrowing. There is no significant soft tissue swelling. RPTAT: AA IMPRESSION: Prominent enthesophyte in the superior patella bilaterally, right worse than left. Small bilateral joint effusions. .Oskar Rae MD, Date Time Electronically viewed and signed by .Oskar Rae MD, MD on 01/24/2017 14:03 .S/
== END | disposition home or self-care (01) ==
LOC: HKI 14:25
PROVIDERS: ATTEND Orthopaedic Surgery Adult Reconstructive Orthopaedic Surgery
DX: M17.11 Unilateral primary osteoarthritis, right knee (principal)
CPT/HCPCS: 73564; Z7500; G0463